=== PATIENT | male | born 1940 | race African-American/Black ===

== ENCOUNTER → 2016-08-16 | Day surgery (SDC) | payer MEDICARE, OTHER ==
[~2016-08-16] MED LIST: ACET325T9 PO; AMLO10TA4 PO; ASPI325T11 PO; BACL10TA PO; BISA10SU55 RC; BUPR100T6 PO; CARV6.252 PO; CETI10TA22 PO; DEXT38GE2 PO; DILT30TA26 PO; FAMO-63 PO; FENTANYL PF 100 MCG/2 ML VIAL. IV PRN; FURO-68 PO; HYDROMORPHONE 2 MG/ML VIAL. IV PRN; INSU100I13 SQ; IV RINGERS,LACTATED 1000ML 1,000 ML IV SCH; LEVE10007 PO; LIDOCAINE 1% 1 ML SYRINGE. ID PRN; LINA145C PO; LISI-334 PO; MORPHINE SULFATE 2 MG/ML DISP.SYRIN. IV PRN; MULT-658 PO; ONDANSETRON PF 4 MG/2 ML VIAL. IV PRN; POTA20TA82 PO; PRAV40TA2 PO; PROCHLORPERAZINE 10 MG/2 ML VIAL. IV PRN; RIVA20TA2 PO
[2016-08-16 10:10] VITALS: BP 183/104
--- NOTE | 2016-08-18 21:27 | HP ---
ADMIT DATE: 08/16/2016 REASON FOR ADMISSION: Improved oropharyngeal dysphagia. REFERRING PHYSICIAN: Dr. Andrew Christopher HISTORY OF PRESENT ILLNESS: A 76-year-old -[place] male with past medical history significant for ____ heart disease, hypertension, status post CVA with PEG placement, gastroesophageal reflux disease, is seen for PEG removal. The patient has improved swallowing at this time. There has been no recurrent aspiration, no coughing and he is otherwise without additional complaints. PAST MEDICAL HISTORY: History of CVA with oropharyngeal dysphagia, history of AFib, CABG, pacemaker placement, diabetes, COPD, gout, hyperlipidemia and dementia. ALLERGIES: Iodine. MEDICATIONS: Include Tylenol, aspirin, baclofen, Wellbutrin, carvedilol, Pepcid, Lasix, levetiracetam, multivitamin and potassium chloride. SOCIAL HISTORY: He is retired. He does not drink or smoke at this time. FAMILY HISTORY: Noncontributory. REVIEW OF SYSTEMS: Per records. PHYSICAL EXAMINATION: GENERAL: Reveals a thin -[place]iss male who is alert, conversant, in no acute distress. He is afebrile. VITAL SIGNS: Pulse 75, respirations 16. HEENT: Normocephalic and atraumatic head. Pupils and extraocular movements are not tested. Sclerae anicteric. NECK: Supple. LUNGS: Clear. CARDIOVASCULAR: Reveals an S1, S2 without S3, S4, or appreciable murmur, well-healed midline sternal incision is noted. ABDOMEN: Reveals a soft abdomen, normal bowel sounds, without appreciable hepatosplenomegaly with an intact G-tube in left upper quadrant. EXTREMITIES: Reveals no cyanosis, clubbing or edema. IMPRESSION: Oropharyngeal dysphagia, improved. We will recommend EGD with PEG removal. Risks and benefits of procedure including risk of hemorrhage or perforation have been discussed with the patient who is willing to proceed at this time. I would like to thank Dr. Christopher for allowing us to participate in his care. MACIE MEZA MD DR: BRIAN/norberto JOB#: [id number] / [id number]
== END | disposition home or self-care (01) ==
LOC: ENDOS 07:50
PROVIDERS: ATTEND Internal Medicine Gastroenterology
DX: Z93.1 Gastrostomy status (principal); K29.50 Unspecified chronic gastritis without bleeding; I50.9 Heart failure, unspecified; I10 Essential (primary) hypertension; I97.821 Postprocedural cerebrovascular infarction following other surgery; K21.9 Gastro-esophageal reflux disease without esophagitis; Z95.1 Presence of aortocoronary bypass graft; E11.9 Type 2 diabetes mellitus without complications; M10.9 Gout, unspecified; E78.5 Hyperlipidemia, unspecified; F03.90 Unspecified dementia, unspecified severity, without behavioral disturbance, psychotic disturbance, mood disturbance, and anxiety; I25.10 Atherosclerotic heart disease of native coronary artery without angina pectoris; Z95.0 Presence of cardiac pacemaker; I48.91 Unspecified atrial fibrillation; M19.90 Unspecified osteoarthritis, unspecified site; F41.9 Anxiety disorder, unspecified; F32.9 Major depressive disorder, single episode, unspecified; F17.200 Nicotine dependence, unspecified, uncomplicated; E78.00 Pure hypercholesterolemia, unspecified